=== PATIENT | female | born 1970 | race Caucasian/White ===

== ENCOUNTER 2020-03-27 06:06 | Day surgery (SDC) | payer BC ==
[~2020-03-27 06:06] MED LIST: Lactated Ringers 1,000 ML IV SCH; Lidocaine 1%/Sod Bicarbonate in NS 8.4% 1 ML Syringe IDERM PRN; Sodium Chloride 0.9% 10 ML Syringe FLUSH PRN
[2020-03-27] MEDS ORDERED: Bupivacaine 0.25% 10 ML SDV ONE (06:23)
--- NOTE | 2020-03-27 06:37 | PCM.PREANE ---
Preanesthetic Assessment - Anesthesia/Transfusion/Family Hx Anesthesia History: Prior Anesthesia Without Reaction Family History of Anesthesia Reaction: No Transfusion History: Prior Transfusion Without Reaction - Review of Systems General: No Symptoms Pulmonary: No Symptoms Cardiovascular: No Symptoms Gastrointestinal: No Symptoms Neurological: No Symptoms Other: Reports: Thyroid Problems (hypothyroid) - Physical Assessment NPO Status Date: 03/26/20 NPO Status Time: 00:00 Vital Signs: Last Vital Signs Temp 37.4 C 03/27/20 06:05 Pulse 85 03/27/20 06:05 Resp 16 03/27/20 06:05 BP 119/71 03/27/20 06:05 Pulse Ox 95 03/27/20 06:05 Height: 1.63 m Weight: 78.925 kg ASA Class: 2 Mental Status: Alert & Oriented x3 Airway Class: Mallampati = 1 Dentition: Reports: Normal Dentition (braces) Thyro-Mental Finger Breadths: 3 Mouth Opening Finger Breadths: 3 ROM/Head Extension: Full Lungs: Clear to Auscultation, Normal Respiratory Effort Cardiovascular: Regular Rate, Regular Rhythm - Lab Values: Laboratory Last Values MRSA (PCR) Negative 03/21/20 11:41 - Allergies Allergies/Adverse Reactions: Allergies Allergy/AdvReac Type Severity Reaction Status Date / Time adhesive Allergy Rash Verified 03/26/20 14:36 - Anesthesia Plan Pre-Op Medication Ordered: None - Acknowledgements Anesthesia Type Planned: General Anesthesia Pt an Appropriate Candidate for the Planned Anesthesia: Yes Alternatives and Risks of Anesthesia Discussed w Pt/Guardian: Yes Pt/Guardian Understands and Agrees with Anesthesia Plan: Yes PreAnesthesia Questionnaire HEENT History: Reports: Impaired Vision, Other (See Below) Other HEENT History: wears glasses, has braces Cardiovascular History: Reports: Blood Clots/VTE/DVT, High Cholesterol Respiratory History: Reports: None Gastrointestinal History: Reports: None Genitourinary History: Reports: None 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 Musculoskeletal History: Reports: Arthritis, Other (See Below) Other Musculoskeletal History: SI joint Neurological History: Reports: None Psychiatric History: Reports: Addiction Endocrine/Metabolic History: Reports: Hypothyroidism, Obesity/BMI 30+ Hematologic History: Reports: None Immunologic History: Reports: None Oncologic (Cancer) History: Reports: None - Infectious Disease History Infectious Disease History: Reports: Shingles - Past Surgical History HEENT Surgical History: Reports: None Cardiovascular Surgical History: Reports: None Respiratory Surgical History: Reports: None GI Surgical History: Reports: Bariatric Procedure Female Surgical History: Reports: Breast Reduction, Hysterectomy, Tubal Ligation Male Surgical History: Reports: None Endocrine Surgical History: Reports: None Neurological Surgical History: Reports: None Musculoskeletal Surgical History: Reports: Other (See Below) Other Musculoskeletal Surgeries/Procedures:: left bunionectomy, left arm fracture with repair, left femur fracture with repair, shoulder repair Oncologic Surgical History: Reports: None Dermatological Surgical History: Reports: Other (See Below) - SUBSTANCE USE Tobacco Use Status *Q: Never Tobacco User Tobacco Use Within Last Twelve Months: No Second Hand Smoke Exposure: No Days Per Week of Alcohol Use: 0 Number of Drinks Per Day: 0 Total Drinks Per Week: 0 Recreational Drug Use History: No - HOME MEDS Home Medications: Home Meds Acetaminophen [Tylenol Extra Strength] 500 mg PO Q6H PRN 03/26/20 [History] Acetaminophen/HYDROcodone [[place] 325-5 MG] 1 - 2 tab PO Q6H PRN #20 tablet 03/26/20 [Rx] Acyclovir [Zovirax] 400 mg PO TID PRN 03/26/20 [History] Apixaban [Eliquis] 2.5 mg PO BID #84 tablet 03/26/20 [Rx] Calcium Carbonate [Calcium] 600 mg PO BID 03/26/20 [History] Cetirizine [ZyrTEC] 10 mg PO DAILY 03/26/20 [History] Levothyroxine Sodium [Levothyroxine] 88 mcg PO DAILY 03/26/20 [History] Metoclopramide [Reglan] 5 mg PO QID PRN 03/26/20 [History] Omeprazole Magnesium [Prilosec Otc] 20 mg PO DAILY 03/26/20 [History] Ondansetron [Zofran] 4 mg PO Q8H PRN 03/26/20 [History] Rosuvastatin [Crestor] 5 mg PO DAILY 03/26/20 [History] - CURRENT (IN HOUSE) MEDS Current Meds: Current Medications Lactated Ringer's (Ringers, Lactated) 1,000 mls @ 125 mls/hr IV ASDIRECTED NORY Stop: 03/27/20 23:00 Lidocaine/Sodium Bicarbonate (Buffered Lidocaine 1% In Ns 8.4%) 0.25 ml IDERM ONETIME PRN PRN Reason: Prior to IV Start Stop: 03/27/20 18:00 Sodium Chloride (Saline Flush) 10 ml FLUSH ASDIRECTED PRN PRN Reason: Keep Vein Open Stop: 03/27/20 18:00 Discontinued Medications Bupivacaine HCl (Sensorcaine-Mpf 0.25%) Confirm Administered Dose 30 ml .ROUTE .eBoox-MED ONE Stop: 03/27/20 06:24
[2020-03-27] MEDS ORDERED: Midazolam 1 MG/ML 2 ML SDV ONE (06:44)
[2020-03-27] MEDS ORDERED: Propofol 200 MG/20 ML SDV ONE (06:44)
[2020-03-27] MEDS ORDERED: fentaNYL 250 MCG/5 ML SDV ONE ×2 (06:44→07:57)
[2020-03-27] MEDS ORDERED: Rocuronium 50 MG/5 ML Vial ONE (06:44)
[2020-03-27] MEDS ORDERED: Ondansetron 4 MG/2 ML SDV ONE (06:44)
[2020-03-27] MEDS ORDERED: Ketorolac 30 MG/ML SDV ONE (06:45)
[2020-03-27] MEDS ORDERED: ceFAZolin 1 GM Vial ONE (06:45)
[2020-03-27] MEDS ORDERED: Lidocaine 1% 4 ML ONE (06:45)
[2020-03-27] MEDS ORDERED: HYDROmorphone 0.5 MG/0.5 ML Syringe ONE ×2 (07:20→07:21)
[2020-03-27] MEDS ORDERED: Lactated Ringers 1,000 ML ONE (07:38)
--- NOTE | 2020-03-27 08:20 | CR ---
Left femur: 4 fluoroscopic spot views were obtained of the left distal femur. Study was obtained utilizing C-arm device. Comparison: No prior femur study. Study shows removal of plate and screws within the distal femur. Single screw remains within the condyle. Mild osteophytes are noted off the knee. Impression: 1. Procedural study as noted above. Diagnostic code #2
[2020-03-27] MEDS ORDERED: fentaNYL 100 MCG/2 ML SDV IVPUSH PRN (08:49)
--- NOTE | 2020-03-27 08:49 | PCM.POSTAN ---
POST ANESTHESIA ASSESSMENT - MENTAL STATUS Mental Status: Alert, Oriented - VITAL SIGNS Vital Signs: Last Vital Signs Temp 37.4 C 03/27/20 06:05 Pulse 85 03/27/20 06:05 Resp 16 03/27/20 06:05 BP 119/71 03/27/20 06:05 Pulse Ox 95 03/27/20 06:05 - RESPIRATORY Respiratory Status: Respiratory Rate WNL, Airway Patent, O2 Saturation Stable, Supplemental Oxygen - CARDIOVASCULAR CV Status: Pulse Rate WNL, Blood Pressure Stable - GASTROINTESTINAL GI Status: No Symptoms - PAIN Pain Score: 0 - POST OP HYDRATION Hydration Status: Adequate & Stable - OBSERVATIONS Free Text/Narrative:: no anesthesia complications noted
[2020-03-27] MEDS ORDERED: HYDROmorphone 0.5 MG/0.5 ML Syringe IVPUSH PRN (08:50)
[2020-03-27] MEDS ORDERED: Acetaminophen/HYDROcodone 325-5 MG Tab PO PRN (08:58)
--- NOTE | 2020-03-27 09:39 | PCM48HPAN ---
Post Anesthesia Note - EVALUATION WITHIN 48HRS OF ANESTHETIC Vital Signs in Normal Range: Yes Patient Participated in Evaluation: Yes Respiratory Function Stable: Yes Airway Patent: Yes Cardiovascular Function Stable: Yes Hydration Status Stable: Yes Pain Control Satisfactory: Yes Nausea and Vomiting Control Satisfactory: Yes Mental Status Recovered: Yes Vital Signs: Last Vital Signs Temp 36.2 C 03/27/20 08:43 Pulse 76 03/27/20 09:30 Resp 16 03/27/20 09:30 BP 109/87 03/27/20 09:30 Pulse Ox 94 L 03/27/20 09:30
--- NOTE | 2020-04-07 17:02 | PCM.OPNOTE ---
- General Post-Op/Procedure Note Date of Surgery/Procedure: 03/27/20 Operative Procedure(s): left femur deep hardware removal Pre Op Diagnosis: painful left femur deep hardware Post-Op Diagnosis: Same Anesthesia Technique: General LMA, Local Primary Surgeon: Bishop Reyes Anesthesia Provider: Mark Sanchez Chair Caner: Diane Gant in mLs: 10 Complications: None Condition: Good
--- NOTE | 2020-04-07 17:44 | OR ---
DATE OF OPERATION: 03/27/2020 SURGEON: Bishop Reyes MD OPERATION PERFORMED: Left femur deep hardware removal. PREOPERATIVE DIAGNOSIS: Painful left femur deep hardware. POSTOPERATIVE DIAGNOSIS: Painful left femur deep hardware. ANESTHESIA: General LMA with local. ANESTHESIA PROVIDER: Mark Sanchez CRNA. ESTIMATED BLOOD LOSS: 10 mL. COMPLICATIONS: None. CONDITION: Stable. DESCRIPTION OF PROCEDURE: The patient was identified in the preoperative holding area. Proper site was marked and identified by the surgeon. The patient was taken back to the OR. The patient was placed supine on the radiolucent table. After adequate anesthesia, the left lower extremity was sterilely prep and draped in the usual sterile fashion. OR time-out was performed. The patient received 2 g of IV Ancef. The left lower extremity was exsanguinated and a nonsterile tourniquet was inflated to 250 mmHg. The previous lateral incision over the distal femur was utilized. This was taken down to the IT band. The IT band was incised along its fibers. At this time, there was noted to be significant scar tissue. The scar tissue was then incised, and this was taken down all the way to the submuscular plate. The plate was noted to be overgrown with bone around the plate as well as in the screw holes. Multiple screws were noted to be stripped. I was able to use the screw removal set to remove this, but this was done with great difficulty secondary to the cold welding of and screws as well of difficulty with removal of them secondary to the longstanding nature of them being in the femur. C-arm fluoroscopy was utilized. I was able to remove all screws. The plate was then removed. All screw holes were curetted and rongeured. Adequate saline was irrigated through the wound, and 0 Vicryl was used in a running fashion for closure of the IT band, 2-0 Vicryl was used subcutaneously, and Prineo was used for closure of the skin. The patient was placed in a sterile soft dressing and sent to the PACU in stable condition. Please note that this was a more difficult procedure for hardware removal secondary to the deep nature of it, the number of screws as well as the overgrowth of bone on the femur. MMODAL /[id number]
== END 2020-03-27 10:30 | disposition home or self-care (01) ==
LOC: JD.SDS 06:06
PROVIDERS: ATTEND Orthopaedic Surgery
DX: T84.84XA Pain due to internal orthopedic prosthetic devices, implants and grafts, initial encounter (principal); E78.5 Hyperlipidemia, unspecified; E66.9 Obesity, unspecified; E03.9 Hypothyroidism, unspecified; Z79.899 Other long term (current) drug therapy; Z98.890 Other specified postprocedural states; Z68.30 Body mass index [BMI] 30.0-30.9, adult
CPT/HCPCS: 20680; 76000; 87641; J0690; J1170; J1885; J2250; J2405; J2704; J3010; J3490; J7120; 01360

== ENCOUNTER 2020-08-06 07:52 | Day surgery (SDC) | payer BC ==
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
[~2020-08-06 07:52] MED LIST changes: +Acetaminophen 325 MG Tab PO SCH; +EPINEPHrine 1 MG/ML SDV ONE; +Morphine 8 MG, EPINEPHrine 0.3 MG, Cefuroxime 750 MG, Ketorolac 30 MG, Sodium Chloride ... PRN; +Pregabalin 25 MG Cap PO SCH; +Propofol 200 MG/20 ML SDV ONE; +Ropivacaine 0.5% 5 MG/ML 30 ML SDV ONE; +ePHEDrine 50 MG/ML SDV ONE; +oxyCODONE ER 10 MG TAB.ER PO SCH
[2020-08-06] MEDS ORDERED: fentaNYL 100 MCG/2 ML SDV ONE (08:44)
[2020-08-06] MEDS ORDERED: Midazolam 1 MG/ML 2 ML SDV ONE (08:44)
[2020-08-06] MEDS ORDERED: ceFAZolin 1 GM Vial ONE (09:55)
[2020-08-06] MEDS ORDERED: Lactated Ringers 1,000 ML ONE ×2 (09:58→11:34)
[2020-08-06] MEDS ORDERED: ePHEDrine 50 MG/ML SDV ONE (10:06)
[2020-08-06] MEDS ORDERED: diphenhydrAMINE 50 MG/ML SDV ONE (10:11)
[2020-08-06] MEDS ORDERED: Propofol 200 MG/20 ML SDV ONE ×4 (10:23→11:14)
[2020-08-06] MEDS ORDERED: Ketamine 500 mg/10 ML MDV ONE (10:29)
[2020-08-06] MEDS: Morphine 8 MG, EPINEPHrine 0.3 MG, Cefuroxime 750 MG, Ketorolac 30 MG, Sodium Chloride ... PRN ×10 (11:02→11:41)
[2020-08-06] MEDS: Vancomycin 1 GM SDV ONE ×2 (11:02→11:48)
[2020-08-06] MEDS ORDERED: Ondansetron 4 MG/2 ML SDV IVPUSH PRN (11:42)
[2020-08-06] MEDS ORDERED: HYDROmorphone 0.5 MG/0.5 ML Syringe IVPUSH PRN (11:42)
[2020-08-06] MEDS: fentaNYL 100 MCG/2 ML SDV IVPUSH PRN ×2 (12:23→12:31)
--- NOTE | 2020-08-06 12:32 | PCM.SN.2 ---
- Free Text/Narrative Note: Left selective femoral nerve block at the adductor canal for post-procedure pain control under US guidance requested by Dr. Reyes. Time Out: 1220 Start: 1220 End: 1224 Chart reviewed. Consent signed. Questions answered. Appropriate monitors applied. Time out performed. Left mid-shaft femur identified with ultrasound, scanning medially of femur, the femoral artery in the adductor canal visualized, and the femoral nerve located laterally to the artery. The skin was prepped lateral to the ultrasound probe with chlorahexadine times two. The 21ga 4 insulated block needle was inserted under direct ultrasound guidance into the adductor canal. 20mL of 0.5% ropivacaine with 1:200,000 epinephrine was injected circumferentially around the nerve with intermittent negative aspiration noted. Patient tolerated the procedure well. Sterile technique noted along with sterile gloves, mask, and sterile probe cover. See picture on progress note and vital signs on nurses notes. Block completed in PACU. Sharon Hanna, ENVIRONMENTAL EDUCATOR
--- NOTE | 2020-08-06 12:34 | PCM.POSTAN ---
POST ANESTHESIA ASSESSMENT - MENTAL STATUS Mental Status: Alert, Oriented - VITAL SIGNS Vital Signs: Last Vital Signs Temp 97.9 F 08/06/20 08:05 Pulse 80 08/06/20 08:05 Resp 17 08/06/20 08:05 BP 119/69 08/06/20 08:05 Pulse Ox 98 08/06/20 08:05 Vital signs at 1212: 131/70 HR 95 RR 20 96 RA 97.4 - RESPIRATORY Respiratory Status: Respiratory Rate WNL, Airway Patent, O2 Saturation Stable - CARDIOVASCULAR CV Status: Pulse Rate WNL, Blood Pressure Stable - GASTROINTESTINAL GI Status: No Symptoms - PAIN Pain Score: 3 - POST OP HYDRATION Hydration Status: Adequate & Stable
--- NOTE | 2020-08-06 13:47 | CR ---
Left knee: AP and crosstable lateral views of the left knee were obtained. Comparison: Prior left knee CT study of 07/09/20. Knee prosthesis is seen. Patellar prosthesis is noted. Joint effusion is seen as well as soft tissue air. Underlying bony structures show nothing acute. Impression: 1. Satisfactory post-op radiographic appearance of recently placed knee prostheses. Diagnostic code #2
[2020-08-06] MEDS ORDERED: oxyCODONE 5 MG Tab PO PRN (14:27)
--- NOTE | 2020-08-06 14:41 | PCM48HPAN ---
Post Anesthesia Note - EVALUATION WITHIN 48HRS OF ANESTHETIC Vital Signs in Normal Range: Yes Patient Participated in Evaluation: Yes Respiratory Function Stable: Yes Airway Patent: Yes Cardiovascular Function Stable: Yes Hydration Status Stable: Yes Pain Control Satisfactory: Yes Nausea and Vomiting Control Satisfactory: Yes Mental Status Recovered: Yes Vital Signs: Last Vital Signs Temp 97.6 F 08/06/20 13:25 Pulse 71 08/06/20 13:40 Resp 15 08/06/20 13:40 BP 146/73 H 08/06/20 13:40 Pulse Ox 97 08/06/20 13:40 - COMMENTS/OBSERVATIONS Free Text/Narrative:: Patient transferred to the floor to have longer recovery prior to going home. PT unable to see patient until 1530 today. Saw patient on Medical/Surgical room 12, and waiting PT to arrive. Patient stating that pain is tolerable at a 3-4/10.
--- NOTE | 2020-08-13 12:59 | PCM.OPNOTE ---
- General Post-Op/Procedure Note Date of Surgery/Procedure: 08/06/20 Operative Procedure(s): left total knee arthroplasty with jose alberto ashley robotic assist Pre Op Diagnosis: left knee osteoarthrosis Post-Op Diagnosis: Same Primary Surgeon: Bishop Reyes Anesthesia Provider: Sharon Hanna Tank Car Loader: Diane Gant Tank Car Loader: Corry Baeza in mLs: 5 Complications: None Condition: Good Free Text/Narrative:: 5 femur 4 tibia 10mm 32x10
--- NOTE | 2020-08-17 20:26 | OR ---
DATE OF OPERATION: 08/06/2020 SURGEON: Bishop Reyes MD OPERATION PERFORMED: Left total knee arthroplasty with Scotts Ananth robotic assist. PREOPERATIVE DIAGNOSIS: Left knee osteoarthrosis. POSTOPERATIVE DIAGNOSIS: Left knee osteoarthrosis. ANESTHESIA PROVIDER: Salas Leach. ANESTHESIA TECHNIQUE: Spinal, local MAC. ENVIRONMENTAL SAMPLING TECHNICIAN: Diane Gant PA-C ESTIMATED BLOOD LOSS: Less than 5 mL. COMPLICATIONS: None. CONDITION: Stable. IMPLANT: 1. Lizabeth size 5 cemented PS femur. 2. Scotts size 4 cemented [place] tibial baseplate. 3. Lizabeth size 4, 10 mm PS polyethylene insert. 4. Lizabeth size 32 x 10 mm cemented asymmetric patella. DESCRIPTION OF PROCEDURE: The patient was identified in the preoperative holding area where proper site was marked and identified by the surgeon. The patient was taken back to the operating theater where after adequate anesthesia, the left lower extremity had a nonsterile tourniquet applied. It was then sterilely prepped and draped in the usual sterile fashion. OR time-out was performed. The patient received 2 g IV Ancef. Leg francis was then applied to the left lower extremity. Left lower extremity was exsanguinated, and the tourniquet was insufflated to 250 mmHg. A standard anterior incision was done. 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 We had done a plate removal just a few months prior on this patient from a distal femoral plate from a previous distal femur fracture. The patient had range of motion roughly only from 20 to set the 80 degrees without over pressure with severe arthrofibrosis and scarring noticed. A medial parapatellar arthrotomy was created. Deep fibers of the MCL were raised and the anterior fat pad was resected. Anterior scar tissue was removed and resected at this time, which was significantly more cumbersome than a usual total knee arthroplasty. At this time, attention was turned to the patella. The patella measured a 23 and was resected to a 13 mm for a 32 x 10 mm patella. Drill holes were drilled and found to be adequate. Attention was turned to the distal femur. At this time, two 4.0 Schanz pins were placed in the distal femur intraincisionally for the Lizabeth Ananth robotic array. Two more were placed in the tibia for the Lizabeth Ananth robotic array. The femoral and tibial checkpoints were then placed, hip center of rotation was obtained. Medial and lateral malleoli were marked. At this time, 40 points were taken off the femur and the tibia for the Qwickly robotic plan. I was able to get the patient with over pressure to 85 degrees of flexion as well with over pressure to roughly 15 degrees of extension to allow for varus and valgus stresses to be applied. At this time, the patient was noted to have a mismatch in the flexion extension gap with significant posterior flexion of the posterior condyle. So at this time, we did have to anteriorize the femur significantly on Qwickly robotic plan. Originally, they called for a size 8 and 7, but at this point, we were able to get it down to 5 and a 4. After taking out the severe amount of flexion deformity that was noted from previous posttraumatic arthritis, I found a good plan for both the flexion and extension gaps, which was significantly again more difficult than a normal total knee arthroplasty with robotics or the standard instrumentation. At this time, the Qwickly robotic arm was brought in. The tibial cut was completed, posterior femoral cut was completed, anterior femoral cut, as well as the anterior chamber cut. The saw blade was then switched. Distal femoral cut and the posterior chamfer cuts were completed. Box cut was completed. At this time, posterior osteophytes were removed, medial and lateral meniscus were resected. All bony fragments were removed. A size 4 tibial trial base plate was placed. Size 5 trial femur was placed, and a 9 mm polyethylene insert was placed. The patient had just a small amount of hyperextension, so at this time we did a size 10 poly. The patient had full extension to 0 degrees and full flexion to 130 degrees and was stable to varus and valgus stresses throughout. Cement was mixed on the back table. All cut surfaces were irrigated with pulse lavage irrigation with Ancef and then completely dried. Gloves were then switched. A size 4 tibia was then cemented in place. A size 5 femur was cement[address] in place. 10 mm PS X3 polyethylene was placed. The patient's knee was brought into full extension. Excess cement was removed and the 32 x 10 mm cemented patella was cemented into place. At this time, 1 L pulse lavage irrigation with Ancef was irrigated through the knee along with 400 mL Irrisept irrigation. Topical tranexamic acid and vancomycin powder were applied. A periarticular injection was completed. #2 barbed suture was used for closure of the medial parapatellar arthrotomy. 2-0 Vicryl and Stratafix were used for subcutaneous closure, and Prineo was used for skin closure. The patient had a sterile soft dressing applied and was sent to PACU in stable condition. Again, this was a severely more difficult case secondary to the patient's deformities and the lack of motion compared to a normal total knee arthroplasty. ANESTHESIA: MMODAL /[id number]
== END 2020-08-06 17:25 | disposition home or self-care (01) ==
LOC: JD.SDS 07:52 → JD.MS 14:19 → JD.SDS 17:25
PROVIDERS: ATTEND Orthopaedic Surgery
DX: M17.12 Unilateral primary osteoarthritis, left knee (principal); E03.9 Hypothyroidism, unspecified; E78.00 Pure hypercholesterolemia, unspecified; E66.01 Morbid (severe) obesity due to excess calories; Z68.29 Body mass index [BMI] 29.0-29.9, adult; G89.18 Other acute postprocedural pain; Z98.890 Other specified postprocedural states; Z91.048 Other nonmedicinal substance allergy status; Z79.899 Other long term (current) drug therapy; Z79.890 Hormone replacement therapy
CPT/HCPCS: 27447; 73560; 97116; 97161; A9270; C1713; C1776; J0171; J0690; J0697; J1170; J1200; J1885; J2250; J2270; J2405; J2704; J2795; J3010; J3370; J7120; 01402; 64450; 76942

== ENCOUNTER 2020-08-12 16:12 | Emergency (ER) | payer BC ==
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
== END 2020-08-12 17:13 | disposition home or self-care (01) ==
LOC: JD.ED 16:12
DX: I82.402 Acute embolism and thrombosis of unspecified deep veins of left lower extremity (principal); E03.9 Hypothyroidism, unspecified; Z79.01 Long term (current) use of anticoagulants; Z91.048 Other nonmedicinal substance allergy status; Z79.899 Other long term (current) drug therapy
CPT/HCPCS: 99283